=== PATIENT | female | born 1965 | race Caucasian/White ===

== ENCOUNTER 2019-10-26 18:15 | Emergency (ER) | payer OTHER ==
[2019-10-26 18:34] VITALS: BP 115/66; PULSE 89; TEMP 98.5; BMI 40.7
--- NOTE | 2019-10-26 18:37 | PDOC ---
History of Present Illness - General Chief Complaint: Chest Pain Stated Complaint: CHEST PAIN Time Seen by Provider: 10/26/19 18:23 - History of Present Illness Initial Comments: 10/26/19 18:34 53 F with h/o pre-DM (not on meds) presenting to ED with 3 days of pulling sensation in her L chest. Pt states that she has had a discomfort in her L chest just below her clavicle. Denies any injury or trauma that preceded the pain. She states that it is not exacerbated or alleviated by anything. Not exertional or pleuritic. However, it is reproducible with palpation. Pt denies SOB. Denies N/V. Denies diaphoresis. No recent travel/immobilization. No leg swelling. No OCP use. Pt is non-smoker, no known FH of [place]. Past History - Past Medical History Allergies/Adverse Reactions: Allergies Allergy/AdvReac Type Severity Reaction Status Date / Time No Known Allergies Allergy Verified 10/26/19 18:16 Home Medications: Ambulatory Orders No Home Medications 0 dose .ROUTE UTDICT 06/04/13 Anemia: No Asthma: No Cancer: No Cardiac Disorders: No CVA: No COPD: No CHF: No Dementia: No Diabetes: No GI Disorders: No Disorders: No HTN: No Hypercholesterolemia: No Liver Disease: No Seizures: No Thyroid Disease: No - Psycho Social/Smoking Cessation Hx Smoking Status: No Smoking History: Never smoked Number of Cigarettes Smoked Daily: 0 Hx Alcohol Use: No Drug/Substance Use Hx: No Substance Use Type: None Hx Substance Use Treatment: No Cardiac Specific PMH - Complaint Specific PMHX Pacemaker: No Review of Systems - Review of Systems Comments:: 10/26/19 18:36 "GENERAL/CONSTITUTIONAL: No fever or chills. No weakness. HEAD, EYES, EARS, NOSE AND THROAT: No change in vision. No ear pain or discharge. No sore throat. CARDIOVASCULAR: + chest pain, no shortness of breath, no loss of consciousness RESPIRATORY: No cough, wheezing, or hemoptysis. GASTROINTESTINAL: No nausea, vomiting, diarrhea or constipation. GENITOURINARY: No dysuria, frequency, or change in urination. MUSCULOSKELETAL: No joint or muscle swelling or pain. No neck or back pain. SKIN: No rash NEUROLOGIC: No vertigo, no change in strength/sensation. ENDOCRINE: No increased thirst. No abnormal weight change. HEMATOLOGIC/LYMPHATIC: No anemia, easy bleeding, or history of blood clots. ALLERGIC/IMMUNOLOGIC: No hives or skin allergy. *Physical Exam - Vital Signs Last Vital Signs Temp Pulse Resp BP Pulse Ox 98.5 F 89 19 115/66 98 10/26/19 18:16 10/26/19 18:16 10/26/19 18:16 10/26/19 18:16 10/26/19 18:16 - Physical Exam 10/26/19 18:36 "GENERAL: Awake, alert, and fully oriented, in no acute distress. HEAD: No signs of trauma EYES: PERRLA, EOMI, sclera anicteric, conjunctiva clear ENT: Auricles normal inspection, hearing grossly normal, nares patent, oropharynx clear without exudates. Moist mucosa NECK: Nontender, no stepoffs, Normal ROM, supple, no lymphadenopathy, JVD, or masses LUNGS: Breath sounds equal, clear to auscultation bilaterally. No wheezes, and no crackles HEART: + tenderness over lateral L pectoralis, Regular rate and rhythm, normal S1 and S2, no murmurs, rubs or gallops ABDOMEN: Soft, nontender, normoactive bowel sounds. No guarding, no rebound. No masses EXTREMITIES: Normal range of motion, no edema. No clubbing or cyanosis. No cords, erythema, or tenderness NEUROLOGICAL: Cranial nerves II through XII intact. 5/5 strength and sensation in all extremities, Normal speech, normal gait, normal cerebellar function SKIN: Warm, Dry, normal turgor, no rashes or lesions noted. Heart Score/ECG Review - History History: Slightly suspicious - Electrocardiogram EKG: Normal - Age Age: 45-65 - Risk Factors Risk Factors Heart Score: Yes Hx Diabetes, Yes Hx Obesity Based on the list above the patient has:: 1-2 risk factors - Troponin Troponin: </= normal limit - Score Heart Score - Total: 2 - ECG Impressions Comment:: 10/26/19 18:45 NSR, no JEREMY/STDs, no TWIs, axis wnl intervals wnl, rate 83 ED Treatment Course - LABORATORY CBC & Chemistry Diagram: 10/26/19 18:53 10/26/19 18:53 - ADDITIONAL ORDERS Additional order review: 10/26/19 18:53 RBC 4.74 MCV 80.1 MCHC 32.3 RDW 15.0 D MPV 10.3 Neutrophils % 68.7 Lymphocytes % 22.8 Monocytes % 5.1 Eosinophils % 2.0 Basophils % 1.4 - RADIOLOGY Radiology Studies Ordered: Category Date Time Status CHEST PA & LAT [RAD] Stat Radiology 10/26/19 18:34 Completed Medical Decision Making - Medical Decision Making 10/26/19 18:36 53 F with left sided chest pulling sensation. Suspect msk pain, as pain is reproducible with palpation of pectoralis muscle. Pt with no PE risk factors. Will r/o ACS with EKG and trop. - Labs, trop - CXR - EKG Discharge - Discharge Information Problems reviewed: Yes Clinical Impression/Diagnosis: Atypical chest pain Condition: Stable Disposition: HOME - Follow up/Referral - Patient Discharge Instructions Patient Printed Discharge Instructions: DI for Atypical Chest Pain Additional Instructions: It is important that you follow-up with your primary care doctor if the chest discomfort persists. Return to the emergency department immediately with ANY new, persistent or worsening symptoms. Continue any medications as previously prescribed by your physician. You should follow up with your primary doctor as soon as possible regarding today's emergency department visit. . Please make sure your doctor reviews the results of your emergency evaluation. Thank you for coming to the Emergency Department today for your care. It was a pleasure to see you today. Please note that your evaluation is INCOMPLETE until you follow-up with your doctor. - Post Discharge Activity
--- NOTE | 2019-10-26 19:13 | PDOC ---
*Physical Exam - Vital Signs Last Vital Signs Temp Pulse Resp BP Pulse Ox 98.5 F 89 19 115/66 98 10/26/19 18:16 10/26/19 18:16 10/26/19 18:16 10/26/19 18:16 10/26/19 18:16 Heart Score/ECG Review - History History: Slightly suspicious - Electrocardiogram EKG: Normal - Age Age: 45-65 - Risk Factors Based on the list above the patient has:: No risk factors known - Troponin Troponin: </= normal limit - Score Heart Score - Total: 1 ED Treatment Course - LABORATORY CBC & Chemistry Diagram: 10/26/19 18:53 10/26/19 18:53 ED Progress Note - Progress Note Progress Note: 10/26/19 19:12 Care of this patient was transferred to or from Dr. birmingham at 1900 hrs. Patient is a 53-year-old female who has had 3 days of a pulling sensation in her chest. Patient has a work-up in progress including chest x-rays EKG, CBC, comp and troponin. If patient's work-up is negative patient will be discharged and follow-up with her primary care doctor. Discharge - Discharge Information Problems reviewed: Yes Clinical Impression/Diagnosis: Atypical chest pain Condition: Stable Disposition: HOME - Admission No - Follow up/Referral - Patient Discharge Instructions Patient Printed Discharge Instructions: DI for Atypical Chest Pain Additional Instructions: It is important that you follow-up with your primary care doctor if the chest discomfort persists. Return to the emergency department immediately with ANY new, persistent or worsening symptoms. Continue any medications as previously prescribed by your physician. You should follow up with your primary doctor as soon as possible regarding today's emergency department visit. . Please make sure your doctor reviews the results of your emergency evaluation. Thank you for coming to the Emergency Department today for your care. It was a pleasure to see you today. Please note that your evaluation is INCOMPLETE until you follow-up with your doctor. - Post Discharge Activity
[2019-10-26 19:17] LABS: BASO % 1.4 % (0-2.0); HEMOGLOBIN 12.3 GM/dl (10.7-15.3); LYMPH % 22.8 % (8-40); MCH 25.9 pg (25.7-33.7); MCHC 32.3 g/dl (32.0-36.0); MEAN CELL VOLUME 80.1 fl (80-96); MEAN PLT VOLUME 10.3 fl (7.5-11.1); MONO % 5.1 % (3.8-10.2); NEUT % 68.7 % (42.8-82.8); PLATELET COUNT 289 K/MM3 (134-434); RBC 4.74 M/mm3 (3.60-5.2); WHITE BLOOD COUNT 11.4 K/mm3 (4.0-10.8)
[2019-10-26 19:30] LABS: ALBUMIN 3.9 g/dl (3.4-5.0); BILIRUBIN,TOTAL 0.4 mg/dl (0.2-1); CALCIUM 9.3 mg/dl (8.5-10); CREATININE 0.8 mg/dl (0.55-1.3); POTASSIUM 4.1 mmol/L (3.5-5.1); TOT PROT 7.9 g/dl (6.4-8.2)
--- NOTE | 2019-10-27 11:30 | EKG ---
Test Reason : Blood Pressure : / mmHG Vent. Rate : 083 BPM Atrial Rate : 083 BPM P-R Int : 158 ms QRS Dur : 080 ms QT Int : 380 ms P-R-T Axes : 055 031 041 degrees QTc Int : 446 ms NORMAL SINUS RHYTHM POSSIBLE LEFT ATRIAL ENLARGEMENT WHEN COMPARED WITH ECG OF 27-FEB-2010 08:42, NO SIGNIFICANT CHANGE WAS FOUND Confirmed by BINDU RICE MD ([id number]) on 10/27/2019 11:30:26 AM Referred By: DR CALVILLO Confirmed By:BINDU RICE MD
== END 2019-10-26 20:02 | disposition home or self-care (01) ==
LOC: FER 18:15
DX: R07.89 Other chest pain (principal); R73.03 Prediabetes
CPT/HCPCS: 36415; 71046-TC-FY; 80053; 82550; 84484; 85025; 93005; 99282-25